=== PATIENT | female | born 1995 | race Caucasian/White ===

== ENCOUNTER 2020-08-01 07:10 | Observation (INO) ==
[2020-08-01] MEDS ORDERED: ONDANSETRON 4 MG/2 ML VIAL IV STA (07:35)
[2020-08-01] MEDS ORDERED: SODIUM CHLORIDE 0.9% 1,000 ML IV STA (07:35)
[2020-08-01] MEDS ORDERED: HYDROmorphone 2 MG/1 ML VIAL IV STA ×2 (07:35→09:26)
[2020-08-01 07:49] LABS: Basophils # 0.1 10*3/uL (0.0-0.2); Basophils % 0.4 % (0.0-0.8); Eosinophils # 0.7 10*3/uL (0.0-0.87); Eosinophils % 5.8 % (0.00-10.9); Hematocrit 43.3 VOL% (35.7-47.0); Hemoglobin 13.4 GM/DL (12.0-16.0); Immature Granulocytes % 0.2 %; Immature Granulocytes Absolute 0.02 #; Lymphocytes # 3.7 10*3/uL (1.4-4.0); Lymphocytes % 31.5 % (21.3-54.2); Mean Corpuscular HGB Conc 30.9 GM/DL (32-36); Mean Corpuscular Volume 85.6 FL (87-102); Mean Platelet Volume 10.5 FL (9.6-12.0); Monocytes % 4.5 % (1.7-12.7); Neutrophils % 57.6 % (38.7-73.9); Platelet Count 315 T/CUMM (130-400); Red Blood Count 5.06 MC/CUMM (3.8-5.5); Red Cell Distribution Width 13.5 % (9.3-17.3); White Blood Count 11.7 T/CUMM (4-12)
[2020-08-01 08:08] LABS: Alanine Aminotransferase 22 U/L (13-56); Albumin 3.4 G/DL (3.4-5.0); Alkaline Phosphatase 98 U/L (45-117); Aspartate Amino Transferase 10 U/L (0-37); Bilirubin,Total < 0.39 MG/DL (0.2-1.0); Blood Urea Nitrogen 8 MG/DL (7-18); Calcium 9.1 MG/DL (8.5-10.1); Carbon Dioxide 30 MMOL/L (21-32); Estimated Glom Filtration Rate 139 ML/MIN; Glucose 92 MG/DL (74-106); Potassium 3.5 MMOL/L (3.5-5.1); Sodium 143 MMOL/L (136-145); Total Protein 7.4 G/DL (6.4-8.2)
[2020-08-01 09:17] LABS: Amorphous Crystals,Urine Many /HPF (Few); Bilirubin,Urine Negative (Negative); Blood, Urine Small mg/dL (Negative); Glucose,Urine (UA) Negative (Negative); Ketones,Urine Negative (Negative); Mucus,Urine Occasional /LPF (Occasional); Nitrite,Urine Negative (Negative); Protein,Urine Negative; RBC,Urine 5 /HPF (0-4); Urine Appearance CLOUDY (Clear); Urine Color Yellow (Yellow); Urine Specific Gravity 1.018 (1.001-1.035); Urine Urobilinogen < 2.0 EU/DL (0.2-1.0)
[2020-08-01] MEDS ORDERED: PIPERACILLIN/TAZOBACTAM 3,375 MG in SODIUM CHLORIDE 0.9% 100 ML IV STA (09:28)
[2020-08-01] MEDS ORDERED: PIPERACILLIN/TAZOBACTAM 3,375 MG VIAL IV ONE (09:29)
[2020-08-01] MEDS ORDERED: SODIUM CHLORIDE 0.9% 100 ML IV ONE (09:29)
[2020-08-01] MEDS ORDERED: ONDANSETRON 4 MG/2 ML VIAL IV PRN (09:31)
[2020-08-01] MEDS ORDERED: ACETAMINOPHEN 325 MG TABLET PO PRN (09:31)
[2020-08-01] MEDS: PIPERACILLIN/TAZOBACTAM 3,375 MG in SODIUM CHLORIDE 0.9% 100 ML IV SCH ×2 (11:43→17:04)
[2020-08-01] MEDS: DEXTROSE 5% NACL 0.45% 1,000 ML IV SCH (13:34)
[2020-08-01] MEDS: HYDROmorphone 2 MG/1 ML VIAL IV PRN (19:26)
[2020-08-02] MEDS: DEXTROSE 5% NACL 0.45% 1,000 ML IV SCH ×2 (02:08→02:14)
[2020-08-02] MEDS: PIPERACILLIN/TAZOBACTAM 3,375 MG in SODIUM CHLORIDE 0.9% 100 ML IV SCH ×3 (02:30→20:24)
[2020-08-02] MEDS: HYDROmorphone 2 MG/1 ML VIAL IV PRN ×3 (02:31→20:20)
[2020-08-02] MEDS: ENOXAPARIN 40 MG/0.4 ML SYRINGE SUBCUT SCH (02:40)
[2020-08-02] MEDS ORDERED: INDOCYANINE GREEN 25 MG VIAL IV ONE (08:06)
[2020-08-02] MEDS: PANTOPRAZOLE 40 MG TABLET PO SCH (08:50)
[2020-08-02] MEDS ORDERED: fentaNYL 100 MCG/2 ML VIAL ONE (10:19)
[2020-08-02] MEDS ORDERED: MIDAZOLAM 2 MG/2 ML VIAL ONE (10:19)
[2020-08-02] MEDS ORDERED: ROCURONIUM 50 MG/5 ML VIAL IV ONE (12:49)
[2020-08-02] MEDS ORDERED: BUPIVACAINE 0.5% 50 ML VIAL ONE (12:49)
[2020-08-02] MEDS ORDERED: LIDOCAINE 2% 5 ML VIAL ONE (12:49)
[2020-08-02] MEDS ORDERED: propofoL 200 MG/20 ML VIAL IV ONE (12:49)
[2020-08-02] MEDS ORDERED: LIDOCAINE 1%/EPI INJ 20 ML VIAL ONE (12:49)
[2020-08-02] MEDS ORDERED: TISSUE ADHESIVE 1 EACH APPLICATOR TOP ONE (12:49)
[2020-08-02] MEDS ORDERED: ONDANSETRON 4 MG/2 ML VIAL ONE ×2 (13:26)
[2020-08-02] MEDS ORDERED: DEXAMETHASONE 4 MG/1 ML VIAL ONE ×2 (13:26)
[2020-08-02] MEDS: LACTATED RINGERS 1,000 ML IV SCH ×2 (14:10→19:31)
[2020-08-02] MEDS ORDERED: KETOROLAC 30 MG/1 ML VIAL ONE (14:57)
[2020-08-02] MEDS ORDERED: ALBUTEROL INHALER 18 GM INH ONE (14:57)
[2020-08-02] MEDS ORDERED: ACETAMINOPHEN INJ 1,000 MG/100 ML VIAL IV ONE (14:57)
[2020-08-02] MEDS ORDERED: SUGAMMADEX 200 MG/2 ML VIAL IV ONE (15:11)
[2020-08-02] MEDS ORDERED: SEVOFLURANE 1 UNIT/15 MINUTE INH ONE (15:22)
[2020-08-03] MEDS: HYDROmorphone 2 MG/1 ML VIAL IV PRN ×3 (00:17→07:21)
[2020-08-03] MEDS: ENOXAPARIN 40 MG/0.4 ML SYRINGE SUBCUT SCH (04:26)
[2020-08-03] MEDS: PIPERACILLIN/TAZOBACTAM 3,375 MG in SODIUM CHLORIDE 0.9% 100 ML IV SCH (04:26)
[2020-08-03 07:30] VITALS: BP 120/84
[2020-08-03] MEDS: PANTOPRAZOLE 40 MG TABLET PO SCH (08:38)
[2020-08-03] MEDS: DEXTROSE 5% NACL 0.45% 1,000 ML IV SCH (08:41)
== END 2020-08-03 10:00 | disposition home or self-care (01) ==
LOC: N.ED 07:10 → N.EDINP 07:10 → N.4E 09:50
PROVIDERS: ADMIT Surgery; ATTEND Surgery